=== PATIENT | male | born 1960 | race Caucasian/White ===

== ENCOUNTER 2019-09-21 15:52 | Emergency (ER) | payer OTHER, SELFPAY ==
[2019-09-21 16:22] VITALS: BP 139/81; PULSE 74; RESP 16; TEMP 36.6; O2SAT 96
--- NOTE | 2019-09-21 16:38 | ED.URI ---
HPI - URI/Sore Throat General Chief Complaint: Upper Respiratory Infection Stated Complaint: cold symptoms Time Seen by Provider: 09/21/19 16:38 Source: patient History of Present Illness HPI Narrative: Patient presents with upper respiratory's symptoms for the past 2 weeks. Sinus pressure nasal congestion nonproductive loose cough no shortness of breath no chest pain fever on and off. Patient reports normal appetite normal activity normally healthy individual. MD elicited complaint: fever, cough, nasal congestion and sinus pain Related Data Home Medications Medication Instructions Recorded Confirmed aspirin 81 mg tablet,delayed 81 mg PO DAILY 07/30/19 release hydrochlorothiazide 12.5 mg tablet 12.5 mg PO DAILY 07/30/19 lisinopril 10 mg tablet 10 mg PO DAILY 07/30/19 omega 1-[id number]-fish oil 300 3 cap PO DAILY cap 07/30/19 mg-1,000 mg capsule Allergies Allergy/AdvReac Type Severity Reaction Status Date / Time No Known Allergies Allergy Unverified 08/14/17 19:50 Review of Systems Review of Systems: Narrative: CONSTITUTIONAL: Denies chills, or sweats. Reports fever and generalized body aches EYES: Denies visual changes, redness, or discharge. ENT: Denies otalgia. Reports nasal congestion runny nose and sore throat CARDIOVASCULAR: Denies chest pain, palpitations, or edema. RESPIRATORY: Denies dyspnea. Reports occasional cough GASTROINTESTINAL: Denies abdominal pain, nausea, vomiting, or diarrhea. GENITOURINARY: Denies dysuria or hematuria. SKIN: Denies rash or itching. MUSCULOSKELETAL: Denies back pain, joint pain, or myalgia. Reports generalized body aches NEUROLOGIC: Denies headache, numbness, or weakness. PSYCHIATRIC: Denies anxiety or depression. [facility] Family History Family History Father Carcinoma of colon, Onset Age: 58 Mother Family history of malignant neoplasm of kidney, Onset Age: 56 Other Hypertension Social History Social History Smoking status: Heavy tobacco smoker Alcohol intake: never Comments At time of signature, agree with nursing past medical, surgical, social and family history. There is no relevant family history pertinent to the presenting complaint Exam Narrative: Exam Narrative: GENERAL: Well-appearing, well-nourished, and in no acute distress. HEAD: Normocephalic, atraumatic. EYES: PERRLA and EOMI. ENT: Nares clear, no rhinorrhea or epistaxis. Mucous membranes moist. Mild postnasal drainage mild maxillary sinus pressure bilateral TM dullness NECK: Supple. CHEST: Clear to auscultation. No respiratory distress. HEART: Regular rate and rhythm. No murmur heard. Normal peripheral pulses. ABDOMEN: Soft, nontender, nondistended, normal active bowel sounds. EXTREMITIES: Normal range of motion. No edema. SKIN: Warm, dry, no rash. NEURO: No focal deficits. Alert and oriented x3. Fran Coma Scale Eye Opening: Spontaneous 4 [place] Coma Scale Motor: Obeys Commands 6 [place] Coma Scale Verbal: Oriented 5 [place] Coma Scale Total 15 Course Vital Signs Vital signs: Vital Signs Temperature 36.6 C 09/21/19 16:22 Pulse Rate 74 09/21/19 16:22 Respiratory Rate 16 09/21/19 16:22 Blood Pressure 139/81 09/21/19 16:22 Pulse Oximetry 96 09/21/19 16:22 Temperature 36.6 C 09/21/19 16:22 Pulse Rate 74 09/21/19 16:22 Respiratory Rate 16 09/21/19 16:22 Blood Pressure 139/81 09/21/19 16:22 Pulse Oximetry 96 09/21/19 16:22 Addressed elevated BP today. Today's blood pressure higher than recommended range. 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 Currently patient denies headache, dizziness, vision changes, CP or shortness of breath. MDM - URI/Sore Throat Differential Diagnosis Differential diagnosis: Likely upper respiratory infection, crou
== END 2019-09-21 17:09 | disposition home or self-care (01) ==
PROVIDERS: Emergency Provider Nurse Practitioner Family; PCP Family Medicine
DX: J32.9 Chronic sinusitis, unspecified (principal); J40 Bronchitis, not specified as acute or chronic; J06.9 Acute upper respiratory infection, unspecified; F17.200 Nicotine dependence, unspecified, uncomplicated; E78.00 Pure hypercholesterolemia, unspecified; I10 Essential (primary) hypertension; E11.9 Type 2 diabetes mellitus without complications
CPT/HCPCS: 99213; G0463